=== PATIENT | female | born 1980 | race Caucasian/White ===

== ENCOUNTER 2019-06-06 18:08 | Emergency (ER) | payer BC, SELFPAY ==
--- NOTE | 2019-06-06 18:25 | ED.URI ---
HPI - URI/Sore Throat General Chief Complaint: Upper Respiratory Infection Stated Complaint: achy/sore throat/cough Time Seen by Provider: 06/06/19 18:25 Source: patient and RN notes reviewed History of Present Illness HPI Narrative: Patient is a 39-year-old female presents the urgent care with complaints of 1 week sore throat, body aches, cough, fatigue. Patient states that she always has large tonsils but they seem to be larger now . Patient has been using ibuprofen [id number] with some relief. Denies of any known fevers, nausea, vomiting. No other acute complaints. No acute distress noted. Patient had a plan of care. Related Data Home Medications Medication Instructions Recorded Confirmed buspirone 10 mg PO DAILY 06/06/19 06/06/19 norethindrone-e.estradiol-iron [Lo 1 tablet PO DAILY 06/06/19 06/06/19 Loestrin Fe] paroxetine HCl 30 mg PO DAILY 06/06/19 06/06/19 Allergies Allergy/AdvReac Type Severity Reaction Status Date / Time amoxicillin Allergy Intermediate Hives / Verified 06/06/19 18:38 Red Face promethazine AdvReac Mild Unknown Verified 06/06/19 18:38 Review of Systems Review of Systems: Narrative: CONSTITUTIONAL: Denies fever, chills, or sweats. Reports of fatigue EYES: Denies visual changes, redness, or discharge. ENT: Reports of sore throat and enlarged tonsils CARDIOVASCULAR: Denies chest pain, palpitations, or edema. RESPIRATORY: Reports of nonproductive cough GASTROINTESTINAL: Denies abdominal pain, nausea, vomiting, or diarrhea. GENITOURINARY: Denies dysuria or hematuria. SKIN: Denies rash or itching. MUSCULOSKELETAL: Denies back pain, joint pain; reports of body aches NEUROLOGIC: Denies headache, numbness, or weakness. All other systems reviewed are negative, except as documented in HPI. [facility] Family History Family History (Updated 11/27/15 @ 23:19 by DOCTOR UNKNOWN) Grandparent Family history of cataracts Asthma Family history of arthritis Family history of heart disease in male family member before age 55 Diabetes mellitus Father Cerebrovascular accident Family history of diabetes mellitus in first degree relative Other Family history of obesity Social History Social History Smoking status: Never smoker Alcohol intake: never Comments At the time of my signature, I reviewed and agree with the nursing past medical, surgical, social, and family history. There is no relevant family history pertinent to the patient complaint. Exam Narrative: Exam Narrative: GENERAL: This is a well-nourished, well-developed patient, in no apparent distress. HEAD: normocephalic, atraumatic. EYES: PERRL. Sclera clear/white. Vision is grossly intact. EARS: External ears normal, auditory canals clear and without drainage, TMs normal without perforation. Hearing grossly intact. NOSE: External nose normal with no obvious nasal discharge, nares without redness, clear rhinorrhea. THROAT: Mucous membranes moist, moderate erythema of the posterior oropharynx with moderate bilateral tonsillar edema with bilateral exudate. Moderate postnasal drainage. NECK: Neck supple, bilateral mild submandibular lymphadenopathy CARDIOVASCULAR: Regular rate and rhythm without murmurs, gallops, or rubs. RESPIRATORY: Clear to auscultation. Breath sounds equal bilaterally. No wheezes, rales, or rhonchi. GASTROINTESTINAL: Abdomen soft, non-tender SKIN: warm, intact with no suspicious lesions or rash, good texture and turgor. NEURO: awake, alert, and oriented to person, place and time. There were no obvious focal neurologic abnormalities. EXTREMITIES: No clubbing, cyanosis, or edema. Course Vital Signs Vital signs: Vital Signs Temperature 98.4 F 06/06/19 18:36 Pulse Rate 80 06/06/19 18:36 Respiratory Rate 20 06/06/19 18:36 Blood Pressure 127/80 06/06/19 18:36 Pulse Oximetry 99 06/06/19 18:36 Temperature 98.4 F 06/06/19 18:36 Pulse Rate 80 06/06/19 18:36 Respiratory Rate 2
[2019-06-06 18:36] VITALS: BP 127/80; PULSE 80; RESP 20; TEMP 36.9; O2SAT 99
== END 2019-06-06 19:08 | disposition home or self-care (01) ==
PROVIDERS: Emergency Provider Nurse Practitioner Family
DX: J02.9 Acute pharyngitis, unspecified (principal); J35.1 Hypertrophy of tonsils
CPT/HCPCS: 86308; 87081; 87880; 99213; G0463

== ENCOUNTER 2020-09-03 10:24 | Emergency (ER) | payer SELFPAY ==
[2020-09-03 10:34] VITALS: BP 115/56; PULSE 79; RESP 16; TEMP 36.9; O2SAT 99
--- NOTE | 2020-09-03 10:49 | ED.SKABFB ---
HPI - Skin/Abscess/Foreign Bdy General Chief complaint: Skin/Abscess/Foreign Body Stated complaint: INFECTED HAIR ON CHIN Time Seen by Provider: 09/03/20 10:50 Source: patient Mode of arrival: ambulatory Limitations: no limitations History of Present Illness HPI narrative: Shirin Tamez is a 40 yo female with no PMH who comes with an infected chin that she states started with a hair. She had the same problem 6 weeks ago on left and had a CT soft tissue and there is no abscess; she has been squeezing her current area on her chin twice a day to express pus there is red and tender. She had Keflex 6 weeks ago for her left-sided chin infection Related Data Home Medications Medication Instructions Recorded Confirmed norethindrone-e.estradiol-iron [Lo 1 tablet PO DAILY 06/06/19 09/03/20 Loestrin Fe] metformin 1,000 mg PO BID 09/03/20 09/03/20 spironolactone 100 mg PO DAILY 09/03/20 09/03/20 Allergies Allergy/AdvReac Type Severity Reaction Status Date / Time amoxicillin Allergy Intermediate Hives / Verified 09/03/20 10:32 Red Face promethazine AdvReac Mild Unknown Verified 09/03/20 10:32 Review of Systems Review of Systems: Narrative: CONSTITUTIONAL: Denies fever, chills, sweats. EYES: Denies visual changes, redness, discharge. ENT: Denies rhinorrhea, congestion, sore throat, otalgia. CARDIOVASCULAR: Denies chest pain, palpitations, edema. RESPIRATORY: Denies dyspnea, wheezing, cough GASTROINTESTINAL: Denies abdominal pain, nausea, vomiting, diarrhea. GENITOURINARY: Denies dysuria, hematuria, abnormal discharge SKIN: Denies rash or itching. Has area of infection on the right lower chin NEUROLOGIC: Denies numbness, or focal weakness. PSYCHIATRIC: Denies anxiety or depression. [facility] Past Medical History Medical History Cellulitis Prediabetes Family History Family History Grandparent Family history of cataracts Asthma Family history of arthritis Family history of heart disease in male family member before age 55 Diabetes mellitus Father Cerebrovascular accident Family history of diabetes mellitus in first degree relative Other Family history of obesity Social History Social History Smoking status: Never smoker Alcohol intake: never Comments At time of signature, I agree with nursing past medical, surgical, social and family history. There is no relevant family history pertinent to the presenting complaint. Exam Narrative: Exam Narrative: GENERAL: This is a well-nourished, well-developed patient, in mild distress. HEAD: normocephalic, atraumatic. EYES: Sclera clear/white. Vision is grossly intact. EARS: External ears normal,. Hearing grossly intact. NOSE: External nose normal without nasal discharge, nares without redness, no rhinorrhea. THROAT: Mucous membranes moist, NECK: Neck supple, CARDIOVASCULAR: Regular rate and rhythm without murmurs, gallops, or rubs. RESPIRATORY: Clear to auscultation. Breath sounds equal bilaterally. No wheezes, rales, or rhonchi. GASTROINTESTINAL: Abdomen soft, SKIN: warm, intact with no suspicious lesions or rash, good texture and turgor. Has enlarged area on right chin that is indurated and deep red (3x4) NEURO: awake, alert, and oriented to person, place and time. There were no obvious focal neurologic abnormalities. Steady gait EXTREMITIES: Normal range of motion. BACK: Nontender without deformity Course Course Emergency [facility]: [facility] redness and induration very tender to touch, has been picking on area twice a day and draining it on on. This is recurrence from 6 weeks ago with when it was on the left Attempted to drain with 18-gauge needle only blood return patient did not want further intervention and patient started on clindamycin an
== END 2020-09-03 11:31 | disposition home or self-care (01) ==
PROVIDERS: Emergency Provider Nurse Practitioner
DX: L03.211 Cellulitis of face (principal); R73.03 Prediabetes
CPT/HCPCS: 10060; 99213; G0463

== ENCOUNTER 2021-03-01 10:50 | Emergency (ER) | payer OTHER, SELFPAY ==
[2021-03-01 11:01] VITALS: BP 121/74; PULSE 70; RESP 18; TEMP 36.6; O2SAT 99
--- NOTE | 2021-03-01 11:51 | ED.URI ---
HPI - URI/Sore Throat General Chief Complaint: Upper Respiratory Infection Stated Complaint: had weekend sickness Source: patient and RN notes reviewed Limitations: no limitations History of Present Illness HPI Narrative: The unvaccinated overweight patient, non-smoker/nondrinker on several routine meds, presents with request for return to work note. Patient states she stayed at home at the end of last week for possible gastrointestinal symptoms manifested mainly by nausea, and to use her sick days. No fever, cough, shortness of breath, diarrhea/vomiting, abdominal pain, frequency/dysuria; no loss of taste/smell, CP, wheezing, rash, S OB?she declines Covid testing now. Symptoms are absent now Related Data Home Medications Medication Instructions Recorded Confirmed metformin 1,000 mg PO BID 09/03/20 03/01/21 buspirone 10 mg PO DAILY 03/01/21 03/01/21 norethindrone-e.estradiol-iron 1 tablet PO DAILY 03/01/21 03/01/21 [Kristina 24 Fe] paroxetine HCl 30 mg PO DAILY 03/01/21 03/01/21 Allergies Allergy/AdvReac Type Severity Reaction Status Date / Time amoxicillin Allergy Intermediate Hives / Verified 03/01/21 11:03 Red Face promethazine AdvReac Mild Gastrointestinal Verified 03/01/21 11:03 Upset Review of Systems Review of Systems: General/Constitutional: No weight loss,fever Eyes: N0: Redness,discharge Ears/Nose/Throat: No: Epistaxis,ear discharge Respiratory: Denies: Hemoptysis Gastrointestinal: No Vomiting, Bleeding-rectal Skin: No Lumps, eruption Neurologic: No Focal Weakness,Sz Hematologic: Denies: Petechiae/Purpura Psychiatric: No: Suicida ideation.. [facility] Past Medical History Medical History Cellulitis Prediabetes Family History Family History Grandparent Family history of cataracts Asthma Family history of arthritis Family history of heart disease in male family member before age 55 Diabetes mellitus Father Cerebrovascular accident Family history of diabetes mellitus in first degree relative Other Family history of obesity Social History Social History Smoking status: Never smoker Alcohol intake: never Comments At time of signature, agree with nursing past medical, surgical, social and family history. There is no relevant family history pertinent to the presenting complaint Exam Narrative: General Appearance: Well nourished/overweight, No distress EYE: PERRLA, Conjunctiva clear Ears: External ear normal Nose: Normal nose Mouth/Throat: Normal appearing, Normal lips Neck: Supple Respiratory: Airway patent, No respiratory distress Cardiovascular: RRR Abdomen: Soft, Non-tender, No massess, Musculoskeletal: Full ROM Skin: Warm, Dry Neurological: A&O x3, CN II-X intact Psychiatric: Normal mood, Normal affect Course Vital Signs Vital signs: Vital Signs Temperature 97.9 F 03/01/21 11:01 Pulse Rate 70 03/01/21 11:01 Respiratory Rate 18 03/01/21 11:01 Blood Pressure 121/74 03/01/21 11:01 Pulse Oximetry 99 03/01/21 11:01 Temperature 97.9 F 03/01/21 11:01 Pulse Rate 70 03/01/21 11:01 Respiratory Rate 18 03/01/21 11:01 Blood Pressure 121/74 03/01/21 11:01 Pulse Oximetry 99 03/01/21 11:01 Discharge Plan Discharge Clinical Impression: Encounter for respiratory clearance examination Patient Disposition: Home, Self-Care Condition: Stable Prescriptions: No Action paroxetine HCl 30 mg tablet 30 mg PO DAILY RF: 0 buspirone 10 mg tablet 10 mg PO DAILY RF: 0 norethindrone-e.estradiol-iron [Kristina 24 Fe] 1 mg-20 mcg (24)/75 mg (4) tablet 1 tablet PO DAILY RF: 0 metformin 1,000 mg tablet 1,000 mg PO BID RF: 0 Follow-up/Referrals: PHYSICIAN NOT ON STAFF,NONSTAFF [Primary Care Provider] - Stand Alone Forms: Work/S
== END 2021-03-01 11:23 | disposition home or self-care (01) ==
PROVIDERS: Emergency Provider Emergency Medicine
DX: R11.0 Nausea (principal); R73.03 Prediabetes
CPT/HCPCS: 99211; G0463